=== PATIENT | male | born 1965 | race African-American/Black ===

== ENCOUNTER 2020-09-28 11:27 | Observation (INO) ==
[2020-09-28] MEDS ORDERED: FUROSEMIDE 100 MG/10 ML VIAL IV STA (11:48)
[2020-09-28 12:40] LABS: Basophils # 0.1 10*3/uL (0.0-0.2); Basophils % 0.7 % (0.0-0.8); Eosinophils # 0.2 10*3/uL (0.0-0.87); Eosinophils % 2.7 % (0.00-10.9); Hematocrit 40.3 VOL% (42.0-52.0); Immature Granulocytes % 0.5 %; Immature Granulocytes Absolute 0.04 #; Lymphocytes # 1.2 10*3/uL (1.4-4.0); Lymphocytes % 14.1 % (21.2-54.2); Mean Corpuscular HGB Conc 32.3 GM/DL (32-36); Mean Corpuscular Volume 93.1 FL (87-102); Mean Platelet Volume 8.7 FL (9.6-12.0); Monocytes % 9.8 % (1.7-12.7); Neutrophils % 72.2 % (38.7-73.9); Platelet Count 407 T/CUMM (130-400); Red Blood Count 4.33 MC/CUMM (3.8-5.5); Red Cell Distribution Width 14.2 % (9.3-17.3); White Blood Count 8.1 T/CUMM (4-12)
[2020-09-28 12:51] LABS: INR 1.2; PT Patient Result 12.4 SECS (9.8-11.9); Partial Thromboplastin Time 28.9 SECS (23.9-33.8)
[2020-09-28 13:06] LABS: Bilirubin,Urine Negative (Negative); Blood, Urine Negative (Negative); Glucose,Urine (UA) Negative (Negative); Ketones,Urine Negative (Negative); Nitrite,Urine Negative (Negative); Protein,Urine Negative; RBC,Urine 2 /HPF (0-4); Urine Appearance CLEAR (Clear); Urine Color Yellow (Yellow); Urine Specific Gravity 1.008 (1.001-1.035)
[2020-09-28 13:10] LABS: Albumin 3.5 G/DL (3.4-5.0); Osmolality,Calculated 265.2 MOS/KG (273-304); Potassium 4.1 MMOL/L (3.5-5.1); Total Protein 7.6 G/DL (6.4-8.3)
[2020-09-28 13:11] LABS: Barbiturates Screen,Urine Negative (Negative); Benzodiazepines Screen,Urine Negative (Negative); Cannabinoid Screen,Urine Negative (Negative); Opiate Screen,Urine Negative (Negative); Phencyclidine Screen,Urine Negative (Negative)
[2020-09-28] MEDS ORDERED: DOCUSATE SODIUM 100 MG CAPSULE PO PRN (14:16)
[2020-09-28] MEDS ORDERED: ONDANSETRON 4 MG/2 ML VIAL IV PRN (14:16)
[2020-09-28] MEDS ORDERED: GLUCAGON 1 MG VIAL IM PRN (14:16)
[2020-09-28] MEDS ORDERED: ACETAMINOPHEN 325 MG TABLET PO PRN (14:16)
[2020-09-28] MEDS ORDERED: DEXTROSE 50% 25 GM/50 ML VIAL IV PRN (14:16)
[2020-09-28] MEDS ORDERED: NICOTINE 21 MG/24 HR PATCH TRANSDERM PRN (14:16)
[2020-09-28] MEDS ORDERED: hydrALAZINE 20 MG/1 ML VIAL IV PRN (14:21)
[2020-09-28 14:57] LABS: Risk Ratio 3.56; VLDL CHOLESTEROL 16.6 MG/DL
[2020-09-28] MEDS: lisinopriL 10 MG TABLET PO SCH (15:39)
[2020-09-28] MEDS ORDERED: INFLUENZA VIRUS VACCINE 0.5 ML SYRINGE IM ONE (16:55)
[2020-09-28] MEDS: DIVALPROEX ER 500 MG TABLET PO SCH (22:51)
[2020-09-28] MEDS: METOPROLOL TARTRATE 50 MG TABLET PO SCH (22:51)
[2020-09-28] MEDS: QUEtiapine 100 MG TABLET PO SCH (22:54)
[2020-09-28] MEDS: ENOXAPARIN 40 MG/0.4 ML SYRINGE SUBCUT SCH (22:54)
[2020-09-29 04:22] LABS: Basophils # 0.1 10*3/uL (0.0-0.2); Basophils % 0.6 % (0.0-0.8); Eosinophils # 0.3 10*3/uL (0.0-0.87); Eosinophils % 2.6 % (0.00-10.9); Hematocrit 37.5 VOL% (42.0-52.0); Hemoglobin 12.3 GM/DL (14.0-18.0); Immature Granulocytes % 0.5 %; Immature Granulocytes Absolute 0.05 #; Lymphocytes # 1.2 10*3/uL (1.4-4.0); Mean Corpuscular HGB Conc 32.8 GM/DL (32-36); Mean Corpuscular Volume 92.6 FL (87-102); Mean Platelet Volume 8.8 FL (9.6-12.0); Monocytes % 9.9 % (1.7-12.7); Neutrophils % 75.4 % (38.7-73.9); Platelet Count 371 T/CUMM (130-400); Red Blood Count 4.05 MC/CUMM (3.8-5.5); Red Cell Distribution Width 13.9 % (9.3-17.3); White Blood Count 10.6 T/CUMM (4-12)
[2020-09-29 04:46] LABS: Calcium 8.3 MG/DL (8.5-10.1); Potassium 3.5 MMOL/L (3.5-5.1)
[2020-09-29] MEDS: METOPROLOL TARTRATE 50 MG TABLET PO SCH (08:25)
[2020-09-29] MEDS: lisinopriL 10 MG TABLET PO SCH (08:25)
[2020-09-29] MEDS: FUROSEMIDE 40 MG/4 ML VIAL IV SCH ×2 (08:26→21:42)
[2020-09-29] MEDS ORDERED: PANTOPRAZOLE 40 MG TABLET PO SCH (09:00)
[2020-09-29] MEDS: ASPIRIN EC 81 MG TABLET PO SCH (13:30)
[2020-09-29] MEDS: ALBUTEROL/IPRATROPIUM 3 ML NEB RESP TX SCH ×2 (14:40→19:20)
[2020-09-29] MEDS: carvediloL 12.5 MG TABLET PO SCH (16:42)
[2020-09-29] MEDS ORDERED: ROSUVASTATIN 10 MG TABLET PO SCH (21:00)
[2020-09-29] MEDS: DIVALPROEX ER 500 MG TABLET PO SCH (21:41)
[2020-09-29] MEDS: QUEtiapine 100 MG TABLET PO SCH (21:42)
[2020-09-29] MEDS: ENOXAPARIN 40 MG/0.4 ML SYRINGE SUBCUT SCH (21:42)
[2020-09-29] MEDS ORDERED: ZALEPLON 5 MG CAPSULE PO PRN (22:57)
[2020-09-30] MEDS: ALBUTEROL/IPRATROPIUM 3 ML NEB RESP TX SCH ×2 (00:40→07:45)
[2020-09-30 06:42] LABS: Basophils # 0.1 10*3/uL (0.0-0.2); Basophils % 0.7 % (0.0-0.8); Eosinophils # 0.3 10*3/uL (0.0-0.87); Eosinophils % 4.6 % (0.00-10.9); Hematocrit 38.4 VOL% (42.0-52.0); Hemoglobin 12.2 GM/DL (14.0-18.0); Immature Granulocytes % 0.7 %; Immature Granulocytes Absolute 0.05 #; Lymphocytes # 1.2 10*3/uL (1.4-4.0); Lymphocytes % 15.5 % (21.2-54.2); Mean Corpuscular HGB Conc 31.8 GM/DL (32-36); Mean Corpuscular Volume 94.6 FL (87-102); Mean Platelet Volume 9.2 FL (9.6-12.0); Monocytes % 9.6 % (1.7-12.7); Neutrophils % 68.9 % (38.7-73.9); Platelet Count 386 T/CUMM (130-400); Red Blood Count 4.06 MC/CUMM (3.8-5.5); Red Cell Distribution Width 14.2 % (9.3-17.3); White Blood Count 7.5 T/CUMM (4-12)
[2020-09-30 06:46] LABS: Calcium 8.3 MG/DL (8.5-10.1); Osmolality,Calculated 274.7 MOS/KG (273-304); Potassium 3.5 MMOL/L (3.5-5.1)
[2020-09-30] MEDS: lisinopriL 10 MG TABLET PO SCH (08:39)
[2020-09-30] MEDS: FUROSEMIDE 40 MG/4 ML VIAL IV SCH (08:39)
[2020-09-30] MEDS: ASPIRIN EC 81 MG TABLET PO SCH (08:40)
[2020-09-30] MEDS: carvediloL 12.5 MG TABLET PO SCH (08:40)
[2020-09-30] MEDS ORDERED: SPIRONOLACTONE 25 MG TABLET PO SCH (10:56)
[2020-09-30 11:54] VITALS: BP 140/107
== END 2020-09-30 12:35 | disposition left against medical advice (07) ==
LOC: N.ED 11:27 → N.EDINP 14:16 → INTOOBSV 14:16 → N.EDINP 15:49 → N.5E 16:09
PROVIDERS: ADMIT Family Medicine; ATTEND Family Medicine

== ENCOUNTER 2022-06-10 01:51 | Observation (INO) ==
[2022-06-10 02:30] LABS: Basophils % 0.2 % (0.0-0.8); Hematocrit 38.9 VOL% (42.0-52.0); Hemoglobin 12.4 GM/DL (14.0-18.0); Immature Granulocytes % 0.4 %; Immature Granulocytes Absolute 0.02 #; Lymphocytes # 0.5 10*3/uL (1.4-4.0); Mean Corpuscular HGB Conc 31.9 GM/DL (32-36); Mean Corpuscular Volume 82.6 FL (87-102); Mean Platelet Volume 9.8 FL (9.6-12.0); Monocytes # 0.4 10*3/uL (0.11-0.8); Monocytes % 7.8 % (1.7-12.7); Neutrophils % 80.6 % (38.7-73.9); Platelet Count 240 T/CUMM (130-400); Red Blood Count 4.71 MC/CUMM (3.8-5.5); Red Cell Distribution Width 18.8 % (9.3-17.3); White Blood Count 4.6 T/CUMM (4-12)
[2022-06-10 03:01] LABS: Alanine Aminotransferase 17 U/L (16-61); Alkaline Phosphatase 109 U/L (45-117); Aspartate Amino Transferase 22 U/L (0-37); Blood Urea Nitrogen 11 MG/DL (7-18); Calcium 8.9 MG/DL (8.5-10.1); Carbon Dioxide 25 MMOL/L (21-32); Chloride 100 MMOL/L (98-107); Glucose 89 MG/DL (74-106); Osmolality,Calculated 274.5 MOS/KG (273-304); Sodium 139 MMOL/L (136-145); Total Protein 6.1 G/DL (6.4-8.2)
[2022-06-10] MEDS ORDERED: MAGNESIUM SULF RIDER 2 GM/50 ML PREMIX IV STA (03:45)
[2022-06-10] MEDS ORDERED: POTASSIUM CHLORIDE 20 MEQ TABLET PO STA (03:45)
[2022-06-10 03:50] LABS: Hyaline Casts,Urine 25 /LPF (0-3); Mucus,Urine Occasional /LPF (Occasional); RBC,Urine 34 /HPF (0-4); Urine Appearance Clear (Clear); Urine Color Yellow (Yellow); Urine pH 6.5 (4.5-8.0)
[2022-06-10 03:51] LABS: Bilirubin,Urine Small mg/dL (Negative); Blood, Urine Small mg/dL (Negative); Glucose,Urine (UA) Negative (Negative); Ketones,Urine Negative (Negative); Nitrite,Urine Negative (Negative); Protein,Urine 100 mg/dL (Negative)
[2022-06-10] MEDS ORDERED: FUROSEMIDE 20 MG/2 ML VIAL IV STA (04:07)
[2022-06-10] MEDS ORDERED: LABETALOL 100 MG/20 ML VIAL IV STA (04:07)
[2022-06-10 04:36] LABS: Barbiturates Screen,Urine Negative (Negative); Benzodiazepines Screen,Urine Negative (Negative); Cannabinoid Screen,Urine Negative (Negative); Opiate Screen,Urine Negative (Negative); Phencyclidine Screen,Urine Negative (Negative)
[2022-06-10] MEDS ORDERED: FUROSEMIDE 40 MG/4 ML VIAL ONE (04:36)
[2022-06-10] MEDS ORDERED: FUROSEMIDE 40 MG/4 ML VIAL IV STA (04:43)
[2022-06-10] MEDS ORDERED: GLUCAGON 1 MG VIAL IM PRN (05:41)
[2022-06-10] MEDS ORDERED: ONDANSETRON 4 MG/2 ML VIAL IV PRN (05:41)
[2022-06-10] MEDS ORDERED: MAGNESIUM SULF RIDER 2 GM/50 ML PREMIX IV ONE (05:47)
[2022-06-10] MEDS ORDERED: MAGNESIUM SULF RIDER 4 GM/100 ML PREMIX IV PRN (05:48)
[2022-06-10] MEDS ORDERED: MAGNESIUM SULF RIDER 2 GM/50 ML PREMIX IV PRN (05:48)
[2022-06-10] MEDS ORDERED: DEXTROSE 10% 250 ML BAG IV PRN (06:01)
[2022-06-10] MEDS ORDERED: HALOPERIDOL 5 MG/ML AMP ONE (08:00)
[2022-06-10] MEDS ORDERED: HALOPERIDOL 5 MG/ML AMP IM STA (08:04)
[2022-06-10] MEDS ORDERED: lisinopriL 10 MG TABLET PER TUBE SCH (09:00)
[2022-06-10] MEDS: ENOXAPARIN 40 MG/0.4 ML SYRINGE SUBCUT SCH (09:10)
[2022-06-10] MEDS: ASPIRIN CHEW 81 MG TABLET PO SCH (09:10)
[2022-06-10] MEDS: LACTULOSE 20 GM/30 ML UDCUP PEG SCH (09:10)
[2022-06-10] MEDS ORDERED: METOPROLOL TARTRATE 25 MG TABLET PEG SCH (11:27)
[2022-06-10] MEDS: METOPROLOL TARTRATE 50 MG TABLET PEG SCH ×2 (13:06→21:35)
[2022-06-10] MEDS: SPIRONOLACTONE 25 MG TABLET PEG SCH (13:06)
[2022-06-10] MEDS: FUROSEMIDE 40 MG/4 ML VIAL IV SCH (16:06)
[2022-06-10] MEDS ORDERED: METOPROLOL TARTRATE 5 MG/5 ML VIAL IV PRN (17:00)
[2022-06-11 04:35] LABS: Basophils % 0.5 % (0.0-0.8); Eosinophils % 0.7 % (0.00-10.9); Hematocrit 35.8 VOL% (42.0-52.0); Hemoglobin 11.6 GM/DL (14.0-18.0); Immature Granulocytes % 0.7 %; Immature Granulocytes Absolute 0.03 #; Lymphocytes # 0.8 10*3/uL (1.4-4.0); Lymphocytes % 19.3 % (21.2-54.2); Mean Corpuscular HGB Conc 32.4 GM/DL (32-36); Mean Platelet Volume 9.4 FL (9.6-12.0); Monocytes # 0.3 10*3/uL (0.11-0.8); Monocytes % 8.1 % (1.7-12.7); Neutrophils % 70.7 % (38.7-73.9); Platelet Count 232 T/CUMM (130-400); Red Blood Count 4.42 MC/CUMM (3.8-5.5); Red Cell Distribution Width 19.1 % (9.3-17.3); White Blood Count 4.1 T/CUMM (4-12)
[2022-06-11 05:01] LABS: Calcium 8.9 MG/DL (8.5-10.1); Osmolality,Calculated 273.7 MOS/KG (273-304); Potassium 3.1 MMOL/L (3.5-5.1)
[2022-06-11 05:11] LABS: Albumin 2.6 G/DL (3.4-5.0); Bilirubin,Total 1.9 MG/DL (0.20-1.00); Calcium 8.3 MG/DL (8.5-10.1); Osmolality,Calculated 273.7 MOS/KG (273-304); Risk Ratio 3.58; Thyroid Stimulating Hormone 3.97 uIU/ml (0.358-3.74); Total Protein 5.5 G/DL (6.4-8.2); VLDL Cholesterol 18.2 MG/DL
[2022-06-11 08:03] VITALS: BP 119/90
[2022-06-11] MEDS ORDERED: POTASSIUM CHLORIDE 20 MEQ TABLET PO ONE (08:26)
[2022-06-11] MEDS ORDERED: POTASSIUM BICARB EFFERVESCENT 20 MEQ TAB.EFF PEG ONE (08:35)
[2022-06-11] MEDS: LACTULOSE 20 GM/30 ML UDCUP PEG SCH (08:36)
[2022-06-11] MEDS: ENOXAPARIN 40 MG/0.4 ML SYRINGE SUBCUT SCH (08:36)
[2022-06-11] MEDS: FUROSEMIDE 40 MG/4 ML VIAL IV SCH (08:36)
[2022-06-11] MEDS: ASPIRIN CHEW 81 MG TABLET PO SCH (08:37)
[2022-06-11] MEDS: SPIRONOLACTONE 25 MG TABLET PEG SCH (08:37)
[2022-06-11] MEDS ORDERED: METOPROLOL TARTRATE 100 MG TABLET PEG SCH (09:00)
[2022-06-11] MEDS ORDERED: LOPERAMIDE 2 MG CAPSULE PEG PRN (09:07)
[2022-06-11] MEDS ORDERED: SERTRALINE 100 MG TABLET PEG SCH (09:30)
[2022-06-11] MEDS ORDERED: risperiDONE 1 MG TABLET PO SCH (09:30)
[2022-06-11] MEDS ORDERED: DILTIAZEM 60 MG TABLET PO SCH (13:00)
[2022-06-11] MEDS ORDERED: PANTOPRAZOLE 40 MG TABLET PO SCH (21:00)
[2022-06-11] MEDS ORDERED: FERROUS SULFATE 300 MG/5 ML UDCUP PEG SCH (21:00)
[2022-06-12] MEDS ORDERED: FOLIC ACID 1 MG TABLET PEG SCH (09:00)
[2022-06-12] MEDS ORDERED: THIAMINE 100 MG TABLET PEG SCH (09:00)
[2022-06-12] MEDS ORDERED: hydroCHLOROthiazide 12.5 MG CAPSULE PEG SCH (09:00)
== END 2022-06-11 11:40 ==
LOC: EDUNIT# → EDBD → SUATTDRO → N.EDINP 01:51 → N.ED 01:51 → N.EDINP 13:50 → N.TELES 14:08
PROVIDERS: ADMIT Internal Medicine Geriatric Medicine; ATTEND Internal Medicine Geriatric Medicine